=== PATIENT | male | born 2005 | race Caucasian/White ===

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

== ENCOUNTER 2023-06-15 05:02 | Outpatient (CLI) | payer OTHER, SELFPAY ==
[2023-06-15 16:25] LABS: ESR < 1 mm/hr (0-15)
[2023-06-15 17:31] LABS: C-Reactive Protein 0.05 mg/dL (0.0-0.3); Calcium 9.1 mg/dL (8.5-10.1); TSH 0.45 uIU/mL (0.36-3.74)
[2023-06-17 15:24] LABS: ANA Interpretation Negative (Negative)
[2023-06-18 10:16] LABS: Myeloperoxidase Ab IgG <0.2 U; Proteinase 3 Ab (PR3) <0.2 U
== END 2023-06-15 05:03 | disposition home or self-care (01) ==
LOC: LBO 05:02
PROVIDERS: Registered Nurse Maternal Newborn; PCP Student in an Organized Health Care Education/Training Program; Visit Provider Student in an Organized Health Care Education/Training Program
DX: H90.3 Sensorineural hearing loss, bilateral (principal); J32.9 Chronic sinusitis, unspecified; F41.9 Anxiety disorder, unspecified; L65.9 Nonscarring hair loss, unspecified
CPT/HCPCS: 36415; 85652; 82310; 83516; 84443; 86038; 86140

== ENCOUNTER → 2023-06-22 01:38 | Outpatient (CLI) | payer OTHER, SELFPAY ==
--- NOTE | 2023-06-22 07:00 | DI.MRI_ITS ---
Exam(s) MR IAC BRAIN WO/W EXAM: MR IAC BRAIN WO/W CLINICAL HISTORY: Sudden sensorineural hearing loss, left. TECHNIQUE: Multiplanar multisequence MRI of the brain and internal auditory canals was performed. CONTRAST MATERIAL: IV Contrast: 13 mL of Magnevist contrast administered. COMPARISON: No exams were available for comparison FINDINGS: VENTRICLES AND EXTRA AXIAL SPACES: Normal in size and morphology for the patient's age. HEMORRHAGE: None. CEREBRAL PARENCHYMA: No focus of restricted diffusion to suggest acute infarct. No space-occupying le ada identified. MIDLINE SHIFT: None. BRAINSTEM/CEREBELLUM: Normal. CALVARIUM: Normal. ENHANCEMENT: No suspicious enhancement identified. VISUALIZED PARANASAL SINUSES/MASTOIDS: Marked mucosal thickening and sinus opacification of the front al, ethmoid and left maxillary sinus. Mucosal thickening of the left sphenoid sinus. Mucosal thickeni ng and small air and small mucous retention cyst and right maxillary sinus. Small air-fluid level rig ht maxillary sinus. Scattered the fluid and mucosal thickening left mastoid air cells. ORBITS: Unremarkable. IAC/CP ANGLE: The internal auditory canals are within normal limits. The cerebellar pontine angles ar e unremarkable. No enhancing lesions are seen. Visualized portions of the cranial nerves appear withi n normal limits. OTHER FINDINGS: None. IMPRESSION: Unremarkable MRI of the brain and internal auditory canals. Severe pansinusitis. Mild left mastoid effusion. DATA REPOSITORY:
[2023-06-22] MEDS: Normal Saline Flush 10 ML SYR IVP (08:38)
[2023-06-22] MEDS: Gadoterate meglumine 20 ML VIAL 14 ML IVP (08:39)
== END ==
PROVIDERS: PCP Student in an Organized Health Care Education/Training Program; Visit Provider Registered Nurse Maternal Newborn
DX: H90.3 Sensorineural hearing loss, bilateral (principal)
CPT/HCPCS: 70553

== ENCOUNTER 2023-12-15 15:53 | Outpatient (CLI) | payer OTHER, SELFPAY ==
--- NOTE | 2023-12-15 10:30 | DI.RAD_ITS ---
Exam(s) XR ELBOW LT COMPLETE EXAM: XR ELBOW LT COMPLETE CLINICAL HISTORY: LEFT ELBOW PAIN. TECHNIQUE: 2D digital imaging was performed. COMPARISON: CR XR ELBOW LT COMPLETE from 11/29/2020 FINDINGS: 3 views No evidence of acute fracture or joint effusion and there is no swelling of the olecranon bursa. Rad ial head and neck appear unremarkable as do the epicondyles. No degenerative changes. No loose intr a-articular bodies. Bone density is normal. No osseous lesions. IMPRESSION: No significant radiograph findings in the left elbow. DATA REPOSITORY: RADIATION DOSE DELIVERED:
== END 2023-12-15 15:54 | disposition home or self-care (01) ==
LOC: DIORS 15:53
PROVIDERS: PCP Student in an Organized Health Care Education/Training Program; Visit Provider Student in an Organized Health Care Education/Training Program
DX: M25.522 Pain in left elbow (principal)
CPT/HCPCS: 73080

== ENCOUNTER 2024-02-23 21:50 | Emergency (ER) | payer OTHER, SELFPAY ==
[2024-02-23 21:52] VITALS: PULSE 66; RESP 20; TEMP 36.6; O2SAT 96
--- NOTE | 2024-02-23 21:57 | ED.GENADUL_ITS ---
Discharge Plan Disposition Patient Disposition: Home Condition: Good Discharge Details Clinical Impression: Foreign body, eye Primary Care Provider: Siobhan Alas ED Provider: Yung Myers Meds and New Rx's Prescriptions: New erythromycin 5 mg/gram (0.5 %) ointment 0.5 inch ophthalmic (eye) TID Qty: 3.5 0RF Discharge Instructions Instructions: Eye Foreign Body (ED) Additional Instructions: Please use erythromycin ointment 3 times a day for the next 3 to 5 days. If still significant irritation and discomfort over the next 24 to 48 hours, please follow-up with [facility]. Return to ED for any vision change, significantly worsening eye pain, swelling or redness around the eye. Referrals: [facility] [Outside] HPI General Mode of arrival: ambulatory . Date/Time Provider Initiated Documentation: 02/23/24 21:55 . Limitations to Documentation: no limitations . Information obtained by: patient . HPI Narrative: Patient was doing woodworking when he got a piece of sawdust in his left eye. He has tried irrigation and eyedrops but still has a lot of irritation and discomfort. No vision change. No other complaint of. Related Data Home Medications Medication Instructions Recorded Confirmed erythromycin 5 mg/gram (0.5 %) eye 0.5 inch ophthalmic (eye) TID #3.5 02/23/24 ointment grams Previous Rx's Medication Instructions Recorded erythromycin 5 mg/gram (0.5 %) eye 0.5 inch ophthalmic (eye) TID #3.5 02/23/24 ointment grams Allergies Allergy/AdvReac Type Severity Reaction Status Date / Time CARROTS Allergy Intermediate Other (See Uncoded 02/22/24 13:02 Comment) ENVIRONMENTAL Allergy Mild Other (See Uncoded 02/22/24 13:02 Comment) General Stated Complaint: EyeProblem MARGARET: 4 Review of Systems Narrative: Per HPI Exam Const General: cooperative, healthy appearing and no acute distress Nutritional Appearance: well nourished Orientation: alert and oriented x3 HENMT Head: normal to inspection Eyes Periorbital: periorbital findings normal Eyelids: eyelids normal Conjunctivae: conjunctival abnormality left conjunctival injection Sclera: sclerae normal Cornea: corneas normal and fluorescein used Pupils: PERRL EOM: EOM intact bilaterally Other: Slit lamp exam left eye with clear anterior chamber, no obvious foreign body visualized. No fluorescein uptake of the cornea. Upper lid everted and swiped with cotton tip swab. Neuro General: patient alert and patient oriented x3 Cranial Nerves: CN's II-XI intact bilaterally Cognition: normal cognition Speech: speech normal Motor: strength 5/5 throughout Sensory Exam: no sensory deficits noted Course Vital Signs Vital signs: Vital Signs Temperature 97.9 F 02/23/24 21:52 Pulse 66 02/23/24 21:52 Respiratory Rate 20 02/23/24 21:52 Pulse Oximetry 96 02/23/24 21:52 Temperature 97.9 F 02/23/24 21:52 Temperature Source Tympanic 02/23/24 21:52 Pulse 66 02/23/24 21:52 Respiratory Rate 20 02/23/24 21:52 Pulse Oximetry 96 02/23/24 21:52 Oxygen Delivery Method Room Air 02/23/24 21:52 Oxygen Flow Rate 0 02/23/24 21:52 Pain Level 6 02/23/24 21:52 Procedures FB Removal Eye Location: eye (L) Topical anesthetic used: tetracaine Foreign body: wood Evidence of corneal penetration: No Technique: irrigation Post-procedure medication: ophthalmic antibiotic Patient tolerated procedure: well Medical Decision Making Patient presenting to ED with left eye irritation and discomfort after getting a piece of sawdust/wood in it earlier this evening. Has attempted irrigation and eyedrops at home without relief. On exam there is no fluorescein uptake to suggest corneal injury. There is no obvious foreign body even with the use of slit-lamp. Upper lid was everted and underside of the lid swiped clean with Q- tip. We then irrigated with 500 mL using the Arun lens. Will place patient on erythromycin ointment 3 times a day for the next 3 to 5 days. If continued issues with discomfort may follow-up with [facility] later this week. Return precautions provided. [facility] All Active Problems (Updated 02/23/24 @ 23:01 by Yung Myers MD) Foreign body, eye (Acute) Cubital tunnel syndrome on left (Acute ~05/2023) Hair loss (Acute) Nasal congestion (Acute) Asymmetrical sensorineural hearing loss (Acute) Recurrent sinus infections (Acute) Hearing loss (Acute) Medical History Quadriceps weakness left Abdominal wall pain in right lower quadrant Recurrent issue Dislocation of patella, left, closed (08/10/22) COVID-19 07/2020 Femoroacetabular impingement of left hip Labral tear of left hip joint Anxiety med trial 01/09/20 waking with panic attacks Oral allergy syndrome banana, avocado, carrot as of 04/13 no epipen 05/14 CARROTS AVOIDS BUT BAN AND TED ARE NOT A BIG ISSUE Concussion 2019 - resolved Allergic rhinitis Food allergy BANANA AND AVOCADO Surgical History History of adenoidectomy S/P [place] arthroscopy [place] [facility] [place]PAIR CAM DEFORMITY AND LABRAL TEAR left hip arthroscopy with labral repair and femoroplasty with nerve injury with Dr. Acosta DOS: 10/04/21 Family History Mother Juvenile rheumatoid arthritis Hyperlipidemia TMJ (temporomandibular joint disorder) deterioration of joint due to RA Father No problems noted. Sister No problems noted. Other Personal history of malignant neoplasm MGM- breast Myocardial infarction maternal side Hepatitis C MGF Stroke MGGM, MGU strokes and [place] before age 40 years Social History Smoking/Tobacco Use Status: Never Smoking risk assessment performed?: Yes Alcohol Intake: never Drug use: Never Substance use type: does not use Education Level: college Details: sophomore fall 2022 [employer] Pets and animals: Yes Pets and animals: dog(s) Current gender identity: male Do you feel safe at home: Yes Additional Social history: unable to access privately
[2024-02-23 21:58] VITALS: PULSE 66; RESP 20; TEMP 36.6; O2SAT 96
[2024-02-23] MEDS: Erythromycin Ophth Oint 3.5 GM TUBE OS (23:04)
[2024-02-23] MEDS: Fluorescein STRIPS 100/BOX 1 MG (23:04)
[2024-02-23] MEDS: Tetracaine 0.5% 4 ML BTL (23:04)
== END 2024-02-23 23:13 | disposition home or self-care (01) ==
PROVIDERS: Emergency Provider Emergency Medicine; PCP Student in an Organized Health Care Education/Training Program
DX: T15.02XA Foreign body in cornea, left eye, initial encounter (principal); W44.F9XA Other object of natural or organic material, entering into or through a natural orifice, initial encounter; Y93.D9 Activity, other involving arts and handcrafts
CPT/HCPCS: 99283

== ENCOUNTER 2024-04-11 10:23 | Emergency (ER) | payer OTHER, SELFPAY ==
[2024-04-11 10:25] VITALS: BP 121/66; PULSE 82; RESP 16; TEMP 37.2; O2SAT 100
--- NOTE | 2024-04-11 10:31 | ED.GENADUL_ITS ---
Discharge Plan Disposition Patient Disposition: Home Condition: Stable Discharge Details Clinical Impression: Contusion of right hand Primary Care Provider: Siobhan Alas ED Provider: Lucas Luo Home Meds and New Rx's Prescriptions: No Action No Known Home Meds Discharge Instructions Instructions: Minor Contusion ED Additional Instructions: You were seen in the emergency department for the crush injury of your right hand, there is no fracture seen on x-ray. This is likely just a bad contusion. Your abrasion is very minor and appears clean. Please keep clean and covered with a simple bandage. We did provide you with a wrist brace to use for symptomatic relief due to your pain with movement. Please rest, ice, compress and elevate the hand often over the next few days, take adequate dosing of Tylenol and ibuprofen as needed for pain. Please return to the emergency department for any signs of neurovascular compromise like severe increase in pain, skin temperature changes distal, inability to feel your fingers or move your fingers. Please follow-up with orthopedics or your primary care for repeat x-ray if having persistent pain past 2 weeks. Referrals: [facility] [Provider Group] Siobhan Alas MD [Primary Care Provider] - Discharge Data Discharge Date/Time-TO BE ENTERED AT DEPARTURE: 04/11/24 11:13 HPI General Date/Time Provider Initiated Documentation: 04/11/24 10:30 . HPI Narrative: 19 year-old male presents to ED today by POV/ambulating with a chief complaint of R hand crush injury- fell into a door crushing his hand between his body and the door- with onset just prior to arrival. He was helping his parents move some stuff out of their shed, and tripped. Has R hand carpal bone pain and a very minor superficial abrasions. Quality described as aching pain, worse with movement, no radiation to numbness, endorses mild tingling, denies bruising, denies wrist/forearm pain. Severity is described as moderate. Palliating factors include simple bandage to abrasion. Provoking factors include nothing specific. Events leading up to the incident/Associated Symptoms: Patient is R-hand dominant. Patient not anticoagulated. Related Data Home Medications Medication Instructions Recorded Confirmed Unknown [No Known Home Meds] 04/11/24 04/11/24 Allergies Allergy/AdvReac Type Severity Reaction Status Date / Time CARROTS Allergy Intermediate Other (See Uncoded 04/11/24 10:27 Comment) ENVIRONMENTAL Allergy Mild Other (See Uncoded 04/11/24 10:27 Comment) General Stated Complaint: Orthopedic MARGARET: 4 Review of Systems All systems reviewed & are unremarkable except as noted in HPI and below Exam Narrative Exam Narrative: GENERAL APPEARANCE: Well-nourished, non-toxic, awake and alert, atraumatic, no acute distress. SKIN: Warm, pink, dry, intact, without rashes/lesions/ulcerations. HEAD: Normocephalic, atraumatic, normal hair distribution for gender/age. EYES: Normal conjunctiva, no exudates on lids/lashes. ENT: Nares patent, no circumoral cyanosis, no facial swelling NECK: Supple, trachea midline, painless cervical ROM. LUNGS/CHEST: Non-labored respirations, normal A/P diameter, symmetrical expansion, no chest wall deformity HEART (CV/PV): Regular rate, no peripheral edema, no JVD. ABDOMEN: Soft, non-distended, no guarding. MSK: Normal ROM, no swelling/deformity to bilateral UEs or LEs, moving all extremities without weakness, no cyanosis, spine midline without tenderness, normal curvature. R HAND: superficial 0.5 cm abrasion not actively bleeding to the dorsal hand, positive anatomical snuffbox tenderness, no crepitus in the carpal bones of the hand, range of motion intact in all fingers, brisk capillary refill in all fingers, sensation intact diffusely, no ecchymosis, R radial pulse 2+. NEURO: Mental Status AAOx4 - alert to person, place, time, events No facial droop, no forehead involvement. Motor: No focal weakness - strength 5/5 in bilateral UEs and LEs, proximal and distal, symmetric. Sensory: sensation intact to light touch globally. Gait normal: patient ambulated without ataxia into ED room. PSYCH: euthymic, cooperative, pleasant, appropriate speech Course Vital Signs Vital signs: Vital Signs Temperature 37.2 C 04/11/24 10:25 Pulse 82 04/11/24 10:25 Respiratory Rate 16 04/11/24 10:25 Blood Pressure 121/66 04/11/24 10:25 Pulse Oximetry 100 04/11/24 10:25 Temperature 37.2 C 06/17/24 10:25 Temperature Source Temporal Artery Scan 04/11/24 10:25 Pulse 82 04/11/24 10:25 Respiratory Rate 16 04/11/24 10:25 Respiratory Effort Normal, Non-Labored 04/11/24 10:28 Blood Pressure 121/66 04/11/24 10:25 Blood Pressure Position Sitting 04/11/24 10:25 Pulse Oximetry 100 04/11/24 10:25 Oxygen Delivery Method Room Air 04/11/24 10:25 Oxygen Flow Rate 0 04/11/24 10:25 Medical Decision Making This dictation utilizes [id number] dictation software and may contain unedited grammatical errors. 19 year-old male presents to ED today by POV/ambulating with a chief complaint of R hand crush injury- fell into a door crushing his hand between his body and the door- with onset just prior to arrival. He was helping his parents move some stuff out of their shed, and tripped. Has R hand carpal bone pain and a very minor superficial abrasions. Quality described as aching pain, worse with movement, no radiation to numbness, endorses mild tingling, denies bruising, denies wrist/forearm pain. Severity is described as moderate. Palliating factors include simple bandage to abrasion. Provoking factors include nothing specific. Events leading up to the incident/Associated Symptoms: Patient is R-hand dominant. Patients' medical history: noncontributory. Family and social history: noncontributory. Pertinent exam findings / vital signs include R HAND: superficial 0.5 cm abrasion not actively bleeding to the dorsal hand, positive anatomical snuffbox tenderness, no crepitus in the carpal bones of the hand, range of motion intact in all fingers, brisk capillary refill in all fingers, sensation intact diffusely, no ecchymosis, R radial pulse 2+. Differential / pathologies of concern include fracture, sprain/strain, contusion, abrasion. Diagnostic studies of: -XR R Hand - no acute fracture. Interventions of: -provided hand/wrist brace for pain. ED Course/Assessment/Plan: 19-year-old male suffered a crush injury when he slipped while carrying things out of his shed, crushing his right hand between hand's body and a metal door. He is a minor abrasion that does not need intervention at this time it appears clean and not contaminated bandaged it. I did provide him with a wrist brace to use for symptomatic relief of his pain, counseled on RICE therapy as well as therapeutic dosing of Tylenol and ibuprofen, strict return criteria for any signs of neurovascular compromise and possible follow-up with orthopedics for persistent pain past 2 weeks for repeat x-ray. Findings not consistent with fracture, neurovascular compromise. Disposition of Contusion of Right Hand. Patient verbalized understanding of the plan and return to ED criteria and engaged in shared decision making. Medical Records Medical records reviewed: Yes I reviewed the patient's medical records. Imaging Data Radiologic Study: Attestation: I personally reviewed and interpreted this imaging study as follows: Imaging: X-Ray Radiologist's impression: EXAM: XR HAND RT COMPLETE CLINICAL HISTORY: R hand injury, carpal bones + scaphoid area. TECHNIQUE: 2D digital imaging was performed. Three views. COMPARISON: CR LEFT HAND LIMITED from 07/13/2017 FINDINGS: BONES: No acute fracture is present. No bony destructive lesion is seen. JOINTS: No dislocation present. SOFT TISSUE: Normal. IMPRESSION: Unremarkable radiographs of the right hand. Quality:SDOH Health Related Social Needs: No Data to Display PFSH All Active Problems (Updated 04/11/24 @ 11:[address] [place]) Contusion of right hand (Acute) Cyst of left nipple (Chronic) Epidermoid cyst Cubital tunnel syndrome on left (Acute ~05/2023) Hair loss (Acute) Nasal congestion (Acute) Asymmetrical sensorineural hearing loss (Acute) Recurrent sinus infections (Acute) Hearing loss (Acute) Medical History (Updated 04/11/24 @ 11:[address] [place]) Quadriceps weakness left Abdominal wall pain in right lower quadrant Recurrent issue Dislocation of patella, left, closed (08/10/22) COVID-19 07/2020 Femoroacetabular impingement of left hip Labral tear of left hip joint Anxiety med trial 01/09/20 waking with panic attacks Oral allergy syndrome banana, avocado, carrot as of 04/13 no epipen 05/14 CARROTS AVOIDS BUT BAN AND TED ARE NOT A BIG ISSUE Concussion 2019 - resolved Allergic rhinitis Food allergy BANANA AND AVOCADO Surgical History History of adenoidectomy S/P hip arthroscopy SURGERY 04/14 [facility] [place] RIGHT REPAIR CAM DEFORMITY AND LABRAL TEAR left hip arthroscopy with labral repair and femoroplasty with nerve injury with Dr. Acosta DOS: 10/04/21 Family History Mother Juvenile rheumatoid arthritis Hyperlipidemia TMJ (temporomandibular joint disorder) deterioration of joint due to RA Father No problems noted. Sister No problems noted. Other Personal history of malignant neoplasm MGM- breast Myocardial infarction maternal side Hepatitis C MGF Stroke MGGM, MGU strokes and NH before age 40 years Social History Smoking/Tobacco Use Status: Never Smoking risk assessment performed?: Yes Alcohol Intake: current Alcohol Intake frequency: a few times a week Drug use: Never Substance use type: does not use Education Level: college Details: sophomore fall 2022 [employer] Pets and animals: Yes Pets and animals: dog(s) Current gender identity: male Do you feel safe at home: Yes Do you feel safe in your relationship?: Yes Additional Social history: unable to access privately PAWSS Have you Been Recently Intoxicated or Drunk Within the Last 30 days?: No Have you Ever Experienced Previous Episodes of Alcohol Withdrawal?: No Have you ever Experienced Withdrawal Seizures?: No Have you ever Experienced Delirium Tremens(DT)s?: No Have you ever undergone Alcohol Rehabilitation Treatment (i.e, inpt ot outpatient treatment programs)?: No Have you ever Experienced Blackouts?: No Have you ever Combined Alcohol with other Downers within the last 90 days?: No Have you ever Combined Alcohol with any other Substance of Abuse during the last 90 days?: No Positive Blood Alcohol level on Presentation? [PCS.BAL]: No Evidence of Increased Autonomic Activity (i.e. HR>120, tremor, sweating, agitation, nausea)?: No Result: 0
--- NOTE | 2024-04-11 10:48 | DI.RAD_ITS ---
Exam(s) XR HAND RT COMPLETE EXAM: XR HAND RT COMPLETE CLINICAL HISTORY: R hand injury, carpal bones + scaphoid area. TECHNIQUE: 2D digital imaging was performed. Three views. COMPARISON: CR LEFT HAND LIMITED from 07/13/2017 FINDINGS: BONES: No acute fracture is present. No bony destructive lesion is seen. JOINTS: No dislocation present. SOFT TISSUE: Normal. IMPRESSION: Unremarkable radiographs of the right hand. DATA REPOSITORY: RADIATION DOSE DELIVERED:
== END 2024-04-11 11:13 | disposition home or self-care (01) ==
PROVIDERS: Emergency Provider Physician Assistant; PCP Student in an Organized Health Care Education/Training Program
DX: S60.221A Contusion of right hand, initial encounter (principal); W22.8XXA Striking against or struck by other objects, initial encounter; Y93.89 Activity, other specified; Y92.018 Other place in single-family (private) house as the place of occurrence of the external cause
CPT/HCPCS: 99283; 73130

== ENCOUNTER 2025-02-10 00:54 | Outpatient (CLI) | payer BC, SELFPAY ==
[2025-02-10 08:05] LABS: Hemoglobin A1C 4.9 % (<5.7)
[2025-02-10 08:32] LABS: Calculated LDL 88 mg/dL (<100); Cholesterol 155 mg/dL (<200); HDL Cholesterol 58 mg/dL (>or=40); Triglyceride 48 mg/dL (<150)
== END 2025-02-10 00:55 | disposition home or self-care (01) ==
LOC: LBO 00:54
PROVIDERS: PCP Nurse Practitioner Family; Visit Provider Nurse Practitioner Family
DX: Z13.220 Encounter for screening for lipoid disorders (principal); Z13.1 Encounter for screening for diabetes mellitus
CPT/HCPCS: 36415; 80061; 83036

== ENCOUNTER 2025-07-18 04:46 | Outpatient (CLI) | payer BC, SELFPAY ==
[2025-07-18 16:15] LABS: Abs Immature Grans 0.02 10^3/uL (0.0-0.06); HCT 43.9 % (40.0-50.0); HGB 15.8 g/dL (13.5-17.5); Immature Grans % 0.3 %; MCH 30.2 pg (27.0-33.0); MCHC 36.0 % (32.0-36.0); MCV 84 fL (80-95); MPV 9.7 fL (8.0-11.0); Platelet Count 261 10^3/uL (130-400); RBC 5.23 10^6/uL (4.36-5.78); RDW 11.6 % (11.8-14.1); RDW-SD 35.1 fL; WBC 6.24 10^3/uL (4.4-10.8)
[2025-07-18 16:26] LABS: Mono Screening Negative (Negative)
[2025-07-18 18:14] LABS: ALT 26 U/L (16-63); AST 18 U/L (15-37); Albumin 4.3 g/dL (3.4-5.0); Alkaline Phosphatase 46 U/L (46-116); Anion Gap 11.4 mmol/L (3-11); BUN 12 mg/dL (7-18); Bilirubin, Total 0.7 mg/dL (0.2-1.0); CO2 25.6 mmol/L (21.0-32.0); Calcium 9.4 mg/dL (8.5-10.1); Chloride 103 mmol/L (98-107); Estimated GFR 133.61 (mL/min/1.73m2); Glucose 121 mg/dL (74-106); Potassium 3.9 mmol/L (3.5-5.1); Sodium 140 mmol/L (136-145); Total Protein 7.7 g/dL (6.4-8.2)
[2025-07-19 11:00] LABS: Lyme Ab w Rflx to Lyme Confirm Negative (Negative)
[2025-07-20 14:21] LABS: B. miyamotoi PCR Negative (Negative); Babesia divergens/MO-1 Negative (Negative); Ehrlichia muris eauclairensis Negative (Negative)
== END 2025-07-18 04:47 ==
LOC: LOS 07-19 04:47
PROVIDERS: PCP Nurse Practitioner Family; Visit Provider Nurse Practitioner Family
DX: R50.9 Fever, unspecified (principal)
CPT/HCPCS: 36415; 80053; 87798; 85025; 86308; 86618

== ENCOUNTER 2025-07-31 16:22 | Outpatient (CLI) | payer BC, SELFPAY ==
[2025-07-31 16:34] LABS: ESR 3 mm/hr (0-15)
[2025-07-31 18:18] LABS: TSH (W/Ref FT4) 2.03 uIU/mL (0.36-3.74); Uric Acid 6.9 mg/dL (3.5-7.2)
[2025-07-31 18:27] LABS: C-Reactive Protein < 0.50 mg/dL (<or=0.5)
== END 2025-07-31 16:23 | disposition home or self-care (01) ==
LOC: LBO 16:22
PROVIDERS: PCP Nurse Practitioner Family; Visit Provider Nurse Practitioner Family
DX: R68.83 Chills (without fever) (principal); M25.50 Pain in unspecified joint
CPT/HCPCS: 36415; 82784; 83516; 85652; 84443; 84550; 86038; 86140; 86431